=== PATIENT | male | born 1960 | race Caucasian/White ===

== ENCOUNTER → 2020-07-15 | Outpatient (CLI) | payer SELFPAY | LOC: M LABSMTC 09:40 | PROVIDERS: ATTEND Pediatrics | DX: Z20.828 Contact with and (suspected) exposure to other viral communicable diseases (principal) ==

== ENCOUNTER 2022-07-03 19:18 | Emergency (ER) | payer OTHER ==
[~2022-07-03] VITALS: Ht 188 cm; Wt 100.9 kg
[2022-07-03 22:09] VITALS: BP 158/81
== END 2022-07-03 22:17 | disposition home or self-care (01) ==
LOC: M ED 19:18
DX: I80.01 Phlebitis and thrombophlebitis of superficial vessels of right lower extremity (principal); I10 Essential (primary) hypertension; Z88.0 Allergy status to penicillin